=== PATIENT | male | born 1945 | race Caucasian/White ===

== ENCOUNTER → 2016-08-09 | Outpatient (CLI) | payer BC ==
[~2016-08-09] MED LIST: NORT50CA PO; RMCI; SIMV40TA2 PO
[2016-08-09 17:45] LABS: ALT/SGPT 32 U/L (12-78); BLOOD UREA NITROGEN 15 mg/dl (7-18); BUN/CREATININE RATIO 19.2 (10-20); CALCIUM 8.6 mg/dl (8.5-10.1); CARBON DIOXIDE 25 mmol/L (21-32); CHLORIDE 106 mmol/L (98-107); CHOLESTEROL 186 mg/dl (0-200); CREATININE 0.79 mg/dl (0.60-1.40); GLUCOSE 87 mg/dl (70-99); SODIUM 139 mmol/L (136-145); TRIGLYCERIDES 148 mg/dl (0-150); VERY LOW DENSITY LIPOPROT CALC 30 mg/dl
[2016-08-09 17:48] LABS: ALB/GLOB RATIO 0.9 (0.9-2); ALKALINE PHOSPHATASE 89 U/L (45-117); AST/SGOT 19 U/L (15-37); CHOLESTEROL/HDL RATIO 4.3; HDL CHOLESTEROL 43 mg/dl; LDL CHOLESTEROL CALCULATED 113 mg/dl
== END | disposition home or self-care (01) ==
LOC: C.LABBFT 12:14
PROVIDERS: ATTEND Internal Medicine
DX: E78.5 Hyperlipidemia, unspecified (principal)

== ENCOUNTER → 2016-12-19 | Outpatient (CLI) | payer BC ==
[2016-12-19 17:20] LABS: BASO % 0.7 %; BASO ABS # 0.04 K/uL (0-0.2); COMPLETE YES; EOS % 1.6 %; HEMATOCRIT 43.7 % (42-52); LYMPH % 30.3 %; LYMPH ABS # 1.84 K/uL (1.2-3.4); MEAN CELL VOLUME 96.9 fL (80-100); MEAN CORPUSCULAR HEMOGLOBIN 32.2 pg (25-34); MEAN CORPUSCULAR HGB CONC 33.2 g/dl (32-36); MEAN PLATELET VOLUME 10.7 fL (7.4-10.4); MONO % 12.4 %; PLATELET COUNT 257 K/uL (130-400); RED BLOOD COUNT 4.51 M/uL (4.7-6.1); WHITE BLOOD COUNT 6.07 K/uL (4.8-10.8)
[2016-12-19 17:36] LABS: ALT/SGPT 26 U/L (12-78); AST/SGOT 14 U/L (15-37); BLOOD UREA NITROGEN 14 mg/dl (7-18); BUN/CREATININE RATIO 19.6 (10-20); CALCIUM 8.7 mg/dl (8.5-10.1); CARBON DIOXIDE 27 mmol/L (21-32); CHLORIDE 106 mmol/L (98-107); CREATININE 0.72 mg/dl (0.60-1.40); GLUCOSE 89 mg/dl (70-99); SODIUM 138 mmol/L (136-145)
[2016-12-19 17:40] LABS: ALKALINE PHOSPHATASE 89 U/L (45-117); CHOLESTEROL 196 mg/dl (0-200); CHOLESTEROL/HDL RATIO 4.8; HDL CHOLESTEROL 41 mg/dl; LDL CHOLESTEROL CALCULATED 133 mg/dl; TRIGLYCERIDES 108 mg/dl (0-150); VERY LOW DENSITY LIPOPROT CALC 22 mg/dl
== END | disposition home or self-care (01) ==
LOC: C.LABBFT 11:46
PROVIDERS: ATTEND Internal Medicine
DX: D50.9 Iron deficiency anemia, unspecified (principal); E78.5 Hyperlipidemia, unspecified

== ENCOUNTER → 2017-02-05 | Outpatient (CLI) | payer BC ==
--- NOTE | 2017-02-05 11:21 | DIAGNOSTIC IMAGING REPORT ---
LUMBAR SPINE 2 OR 3 VIEWS, PELVIS 1 OR 2 VIEW ROUTINE HISTORY: 71 years-old Male RHEUMATOID ARTHRITIS bilateral lower extremity pain with history of rheumatoid arthritis. No reported trauma. COMPARISON: Lumbar spine radiograph 05/25/2013, pelvis radiographs 12/18/2013. TECHNIQUE: 3 views of the lumbar spine and 2 views of the pelvis FINDINGS: LUMBAR SPINE: Ribs at T12 are hypoplastic. Multilevel moderate and severe intervertebral disc space narrowing is seen throughout the spine, progressed from prior study dated 05/25/2013. Multilevel facet arthrosis and endplate spurring is also noted. There is straightening of the normal cervical lordosis. No acute fracture or subluxation identified. No definite erosive changes. Opacities projecting over the bilateral renal shadows measuring up to 3 mm may reflect fecal debris or renal calculi. PELVIS: Bones are mildly demineralized. Mild degenerative changes involve the bilateral hips without evidence of erosive arthropathy. There are mild degenerative changes of the SI joints without evidence of erosive arthropathy. IMPRESSION: 1. No acute fracture or dislocation. No evidence of erosive arthropathy. 2. Multilevel intervertebral disc space narrowing and facet arthropathy as above, progressed from prior study dated 05/25/2013. 3. Opacities projecting over the bilateral renal shadows measuring up to 3 mm may reflect fecal debris or renal calculi. The above report was generated using voice recognition software. It may contain grammatical, syntax or spelling errors. Electronically signed by: Cachorro Zavaleta M.D. 02/05/2017 11:19 AM Dictated Date/Time: 02/05/2017 11:14 AM
--- NOTE | 2017-02-05 11:22 | DIAGNOSTIC IMAGING REPORT ---
L HAND MIN 3 VIEWS ROUTINE CLINICAL HISTORY: RHEUMATOID ARTHRITIS COMPARISON STUDY: None. FINDINGS: No fracture or dislocation within the left hand. Bone mineralization is intact. Soft tissues are within normal limits. Mild osteoarthritis within the majority of the DIP and PIP joints. The PIP joint of the left fifth finger demonstrates advanced osteoarthritis with possible superimposed erosive arthritis. Otherwise, no areas of erosions identified. Small cystic focus at the distal ulna is likely due to chronic change rather than inflammatory arthropathy. Mild soft tissue swelling within the wrist. IMPRESSION: 1. 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 There is advanced arthritic change at the PIP joint of the left fifth digit which may demonstrate superimposed erosive arthritis. 2. No additional areas of erosive within the left hand. 3. Mild soft tissue swelling within the wrist. Electronically signed by: Valentin Perez M.D. 02/05/2017 11:20 AM Dictated Date/Time: 02/05/2017 11:17 AM
--- NOTE | 2017-02-05 11:24 | DIAGNOSTIC IMAGING REPORT ---
R FOOT MIN 3 VIEWS ROUTINE, L FOOT MIN 3 VIEWS ROUTINE CLINICAL HISTORY: RHEUMATOID ARTHRITIS COMPARISON STUDY: None. FINDINGS: No fracture or dislocation within the right or left foot. Soft tissues are unremarkable. The bones are osteopenic. Mild to moderate osteoarthritis within the DIP and PIP joints as well as the bilateral first MTP joints. Bony bunion at the first metatarsal heads. IMPRESSION: Chronic/degenerative changes as described above. No bony erosions identified. Electronically signed by: Valentin Perez M.D. 02/05/2017 11:22 AM Dictated Date/Time: 02/05/2017 11:20 AM
--- NOTE | 2017-02-05 11:36 | DIAGNOSTIC IMAGING REPORT ---
R HAND MIN 3 VIEWS ROUTINE CLINICAL HISTORY: 71 years-old Male presenting with RHEUMATOID ARTHRITIS. TECHNIQUE: Frontal, oblique, and lateral views of the right hand were obtained. COMPARISON: Correlation made to plain radiographs of the left hand performed the same day. FINDINGS: Radiocarpal, intercarpal, and carpometacarpal articulations preserved. Metacarpophalangeal joints preserved. Joint space loss and subchondral cystic change suggested at the proximal interphalangeal joint of the second finger. Subtle central erosions may be present. No significant soft tissue abnormality is evident. No acute fracture or malalignment. IMPRESSION: No evidence of erosive changes to suggest inflammatory arthritis. Degenerative changes at the proximal interphalangeal joint of the second finger consistent with osteoarthritis or erosive osteoarthritis. Electronically signed by: Aidan Lawson M.D. 02/05/2017 11:34 AM Dictated Date/Time: 02/05/2017 11:05 AM
== END | disposition home or self-care (01) ==
LOC: C.RAD 10:36
PROVIDERS: ATTEND Internal Medicine Rheumatology
DX: Z79.899 Other long term (current) drug therapy (principal); M25.50 Pain in unspecified joint; M05.79 Rheumatoid arthritis with rheumatoid factor of multiple sites without organ or systems involvement

== ENCOUNTER → 2017-03-22 | Outpatient (CLI) | payer BC | END | disposition home or self-care (01) | LOC: C.LABBFT 10:19 | PROVIDERS: ATTEND Urology | DX: N40.1 Benign prostatic hyperplasia with lower urinary tract symptoms (principal) ==

== ENCOUNTER → 2017-03-25 | Outpatient (CLI) | payer BC ==
--- NOTE | 2017-03-25 14:27 | DIAGNOSTIC IMAGING REPORT ---
KUB CLINICAL HISTORY: Nephrolithiasis. FINDINGS: 2 AP supine abdominal radiographs are compared to study dated 03/05/2016. There is a nonobstructed abdominal bowel gas pattern noting moderate to severe constipation. There are numerous tiny bilateral nonobstructing renal calculi, overall similar in appearance to the 03/05/2016 examination. The largest stone measures up to 4 mm. There is no radiographic evidence of ureteral stone. A large phlebolith is seen in the right hemipelvis. The skeletal structures are osteopenic. Mild to moderate lumbosacral spondylosis is observed. IMPRESSION: 1. There are numerous tiny nonobstructing bilateral renal calculi, similar in appearance to 03/05/2016. 2. Moderate to severe constipation. Electronically signed by: Matias Mondragon M.D. 03/25/2017 2:26 PM Dictated Date/Time: 03/25/2017 2:24 PM
== END | disposition home or self-care (01) ==
LOC: C.RAD 12:14
PROVIDERS: ATTEND Urology
DX: N20.0 Calculus of kidney (principal); K59.00 Constipation, unspecified

== ENCOUNTER → 2017-08-01 | Outpatient (CLI) | payer BC ==
[2017-08-01 11:08] LABS: HEMATOCRIT 41.2 % (42-52); HEMOGLOBIN 13.9 g/dL (14.0-18.0); MEAN CELL VOLUME 96.7 fL (80-100); MEAN CORPUSCULAR HEMOGLOBIN 32.6 pg (25-34); MEAN CORPUSCULAR HGB CONC 33.7 g/dl (32-36); MEAN PLATELET VOLUME 10.4 fL (7.4-10.4); PLATELET COUNT 222 K/uL (130-400); RED CELL DISTRIBUTION WIDTH CV 13.4 % (11.5-14.5); RED CELL DISTRIBUTION WIDTH SD 47.4 fL (36.4-46.3)
[2017-08-01 11:20] LABS: ALBUMIN 3.7 gm/dl (3.4-5.0); ALT/SGPT 24 U/L (12-78); BLOOD UREA NITROGEN 18 mg/dl (7-18); CALCIUM 8.7 mg/dl (8.5-10.1); CARBON DIOXIDE 28 mmol/L (21-32); CHOLESTEROL 157 mg/dl (0-200); CREATININE 0.73 mg/dl (0.60-1.40); GLUCOSE 89 mg/dl (70-99); POTASSIUM 3.8 mmol/L (3.5-5.1); SODIUM 139 mmol/L (136-145)
[2017-08-01 11:25] LABS: ALKALINE PHOSPHATASE 71 U/L (45-117); AST/SGOT 14 U/L (15-37); LDL CHOLESTEROL CALCULATED 99 mg/dl; TOTAL PROTEIN 7.3 gm/dl (6.4-8.2)
== END | disposition home or self-care (01) ==
LOC: C.LAB1850 08:56
PROVIDERS: ATTEND Internal Medicine
DX: E78.5 Hyperlipidemia, unspecified (principal)

== ENCOUNTER → 2017-08-20 | Outpatient (CLI) | payer BC | END | disposition home or self-care (01) | LOC: C.MAMM 13:32 | PROVIDERS: ATTEND Dentist Orthodontics and Dentofacial Orthopedics | DX: M19.90 Unspecified osteoarthritis, unspecified site (principal); M85.80 Other specified disorders of bone density and structure, unspecified site ==

== ENCOUNTER → 2017-12-02 | Day surgery (SDC) | payer BC ==
[2017-11-04 13:37] VITALS: Ht 182.9 cm; Wt 90.9 kg
[~2017-12-02] VITALS: Ht 182.9 cm; Wt 90.9 kg
[~2017-12-02] MED LIST changes: +500ML BSS 0.3ML EPI 1:1000PF IRRIG ONE; +ACETAMINOPHEN 325 MG TAB PO PRN; +ADAL40KI SC; +AMVISC PLUS 0.8ML SYRINGE INT OCU ONE; +ATOR-24 PO; +ATROPINE SULFATE 0.1 MG/ML 5ML SYR IV PRN; +BRIMONIDINE TART 0.2% OP SOLN PER DROP CHARGE ONE; +BSS FLUSH ONE; +DICL-201 PO; +DULO-24 PO; +ENDOCOAT 0.85ML SYRINGE INT OCU ONE; +EpHEDrine SULFATE INJ 50 MG/ML AMP IV PRN; +EpINEphrine INJ 1MG/ML AMP 1 MG/ML AMP ONE; +LACTATED RINGER'S 1000ML 500 ML IV SCH; +LIDOCAINE 4% OP SOLN DROP CHARGE ONE; +LIDOCAINE 4% OP SOLN DROP CHARGE OPL SCH; +LIDOCAINE HCL 1% MPF 2 ML VIAL ONE; +MIDAZOLAM HCL 1 MG/ML 2ML VIAL ONE; +MOXIFLOXACIN OPH SOLN PER DROP CHARGE ONE; -NORT50CA PO; +POVIDONE-IODINE OP SOLN 30 ML BTL ONE; +PROPARACAINE 0.5% OP SOLN PER DROP CHARGE OPL SCH; -RMCI; -SIMV40TA2 PO; +TOBRAMYCIN/DEXAMETHASONE OPH OINT PER APPLN CHARGE ONE
[2017-12-02] MEDS: PHENYLEPHRINE HCL 2.5% OP SOLN PER DROP CHARGE OPL SCH ×2 (09:38→09:43)
[2017-12-02] MEDS: TROPICAMIDE 1% OP SOLN PER DROP CHARGE OPL SCH ×2 (09:39→09:44)
[2017-12-02] MEDS: CYCLOPENTOLATE HCL 1% OP SOLN PER DROP CHARGE OPL SCH ×2 (09:40→09:45)
[2017-12-02] MEDS: KETOROLAC 0.5% OP SOLN PER DROP CHARGE OPL SCH ×2 (09:41→09:46)
[2017-12-02] MEDS: MOXIFLOXACIN OPH SOLN PER DROP CHARGE OPL SCH ×2 (09:42→09:53)
--- NOTE | 2017-12-02 09:42 | History & Physical Bridge - SC ---
H&P Re-Evaluation Bridge Note: I have examined the patient, reviewed the History & Physical and in the interval since the performance of the History & Physical I have noted the following changes of clinical significance: No changes noted
--- NOTE | 2017-12-02 10:39 | [facility] Operative Report ---
Operative Report Operative Date Dec 02, 2017. Pre-Operative Diagnosis Left Eye Cataract Post-Operative Diagnosis same Procedure(s) Performed Left Cataract Phacoemulsification With Intraocular Lens Implant Surgeon Dr. Ban Zhou Social Worker Psychiatric Surgeon(s) 0 Estimated Blood Loss 0 Findings cataract left eye Specimens None Drains None Anesthesia Type MAC Complication(s) none Disposition no Recovery Room / PACU Indications decreased vision left eye Description of Procedure After informed consent was obtained in the holding area the patient was wheeled back to the operating room where cardiac monitoring leads and oxygen by nasal cannula was administered by Anesthesia. Gentle IV sedation was given, and the patient's left eye was prepped and draped in usual sterile fashion. A wire lid speculum was placed into the left eye and the operating microscope was swung into position. Using 0.12 forceps and a Supersharp blade a paracentesis port was made 2 o'clock hours away from the 3 o'clock position of the patient's left eye. 1% non-preserved Lidocaine was then injected into the anterior chamber for anesthesia. A 2.0 mm keratotome blade was then used to make a shelved clear corneal incision at the 3 o'clock position of the left eye. Amvisc was injected into the anterior chamber and a cystotome and Utrata forceps were used to perform a curvilinear capsulorrhexis. BSS on a hydrodissection cannula was used to hydrodissect the lens nucleus away from the capsular bag. The phacoemulsification handpiece was then used in a stop and chop fashion to remove the lens nucleus. The irrigation and aspiration handpiece was then used to remove the residual cortical material. Amvisc was injected into the capsular bag and anterior chamber and a B[employer]ch [employer] Lomb MX60E 20.5 Diopter intraocular lens was injected into the capsular bag. Irrigation and aspiration handpiece was used to remove the residual viscoelastic material. The wounds were hydrated and noted to be watertight. The wire lid speculum was removed from the eye. Vigamox, Brimonidine, and TobraDex ointment were placed on the eye and it was shielded. It should be noted that EndoCoat was used extensively during the case to protect the cornea endothelium. DISPOSITION: The patient tolerated the procedure well and was wheeled to the post anesthesia care unit in stable condition. I attest to the content of the Intraoperative Record and any orders documented therein. Any exceptions are noted below. I attest to the content of the Intraoperative Record and any orders documented therein. Any exceptions are noted below.
--- NOTE | 2017-12-02 10:40 | Discharge Instructions-SurgCtr ---
Discharge Instructions Date of Service Dec 02, 2017. Visit Reason for Visit: Cataract Left Eye Discharge Discharge Diagnosis / Problem: cataract left eye Discharge Goals Goal(s): Improve function Activity Recommendations Activity Limitations: per Instructions/Follow-up section Lifting Limitations: no more than 5 pounds Anesthesia . Post Anesthesia Instructions: If you have had General Anesthesia or IV Sedation: * Do not drive today. * Resume driving when surgeon permits. * Do not make important decisions or sign legal documents today. * Call surgeon for: 1. Temperature elevations greater than 101 degrees F. 2. Uncontrollable pain. 3. Excessive bleeding. 4. Persistent nausea and vomiting. 5. Medication intolerance (nausea, vomiting or rash). * For nausea and vomiting use only clear liquids such as: tea, soda, bouillon until nausea subsides, then gradually increase diet as tolerated. * If you have any concerns or questions, call your surgeon's office. If physician is unavailable and it is an emergency, call 911 or go to the nearest emergency room. . Instructions / Follow-Up Instructions / Follow-Up ACTIVITY RECOMMENDATIONS: * Light activities * You may walk outside, read, watch television. * Mild irritation and blurred vision are common for the first few days, redness around the white part of the eye is common. MEDICATIONS: Resume previous medications unless instructed otherwise by your surgeon. Eye drops (today and tomorrow): Polytrim - one drop in operative eye every 2 hours while awake Prednisolone 1% - one drop in operative eye every 2 hours while awake Prolensa - one drop operative eye 1 times daily SPECIAL CARE INSTRUCTIONS: * If any problems or concerns, please call Dr. Zhou's office at . * Keep plastic shield taped over eye to sleep at night. * Keep plastic shield taped over eye except to administer eye drops. * Keep plastic shield on until office visit the following day. FOLLOW UP VISIT: Follow-up with Dr. Zhou in the [facility] office as scheduled. If not already scheduled, please call the office at . Diet Recommendations Home Diet: resume previous diet Procedures Procedures Performed: Left Cataract Phacoemulsification With Intraocular Lens Implant Pending Studies Studies pending at discharge: no Medical Emergencies . Who to Call and When: Medical Emergencies: If at any time you feel your situation is an emergency, please call 911 immediately. . Non-Emergent Contact Non-Emergency issues call your: Security Professional . . "Provider Documentation" section prepared by Bronson Zhou. .
[2017-12-02 10:42] VITALS: TEMP 36.3
[2017-12-02 11:10] VITALS: BP 142/86; PULSE 59; O2SAT 98
--- NOTE | 2017-12-02 11:20 | Anesthesia Progress Nt - [facility] ---
Anesthesia Post Op Note Date & Time Dec 02, 2017 at 11:20 Vital Signs Pain Intensity: 0 Vital Signs Past 12 Hours Date Time Temp Pulse Resp B/P (MAP) Pulse Ox O2 Delivery O2 Flow Rate FiO2 12/02/17 11:10 59 18 142/86 (104) 98 Room Air 12/02/17 10:42 36.3 62 16 155/85 (108) 99 Room Air 12/02/17 09:29 36.9 60 18 167/103 (124) 99 Room Air 153/93 (113) Notes Mental Status: alert / awake / arousable, participated in evaluation Pt Amnestic to Procedure: Yes Nausea / Vomiting: adequately controlled Pain: adequately controlled Airway Patency, RR, SpO2: stable & adequate BP & HR: stable & adequate Hydration State: stable & adequate Anesthetic Complications: no major complications apparent
== END | disposition home or self-care (01) ==
LOC: X.SURG 09:11
PROVIDERS: ATTEND Ophthalmology
DX: H25.12 Age-related nuclear cataract, left eye (principal); E78.00 Pure hypercholesterolemia, unspecified; E78.5 Hyperlipidemia, unspecified; M06.9 Rheumatoid arthritis, unspecified; N18.9 Chronic kidney disease, unspecified; Z98.41 Cataract extraction status, right eye

== ENCOUNTER 2021-12-05 07:49 | Inpatient (IN) ==
[2021-12-05] MEDS ORDERED: ONDANSETRON INJ 2 MG/ML 2 ML VIAL IV STA (08:12)
[2021-12-05] MEDS ORDERED: HYDROmorphone INJ 1 MG/ML SYRINGE IV STA ×2 (08:12→14:34)
--- NOTE | 2021-12-05 08:12 | Emergency Department Note ---
Impression & Plan Calculus of right ureter, Hydronephrosis of right kidney, Intractable pain ED Provider Note Name: TATYANA PERRY Age: 76 Sex: M Arrives Via: Walk-In Informant: Patient, ED Provider: Román Baird MD Chief Complaint: Flank pain Impression: As per impressions above Medical Decision Making: Pleasant 76-year-old gentleman with a long history of renal colic stones and previous urology evaluation. He had a lithotripsy of an 8 mm stone in the right kidney done about 4 days ago. Sudden onset pain last night nausea vomiting very uncomfortable. Given multiple rounds of narcotics to get comfortable here in the ER. No recent CT imaging and thus I felt it was reasonable to go ahead with that given the amount of pain he is having post procedurally. He has 2 4 mm stones in the mid right ureter with resulting hydro-. Kidney functions good he does not have evidence of infection. He does difficulty but under control without IV narcotics. I discussed this with the hospitalist who will bring him in for further management. Patient is on board with this plan. Prior Medical Record and Triage/Nursing Notes reviewed by Me Additional history obtained from chart Differentials:Renal colic, UTI, appendicitis, diverticulitis, mesenteric ischemia, aortic pathology, infections, inflammatory bowel disease, PUD, biliary pathology, as well as other pathologies. Vital Signs: reviewed and remarkable for no significant abnormalities Interventions: Dilaudid 1 mg IV x2, Dilaudid 0.5 mg IV x2, Zofran 4 mg IV, normal saline bolus Labs:Reviewed and remarkable for no significant abnormalities Imaging:CT of the abdomen pelvis as per radiologist obstructing right ureteral stones with hydro- Consults:Dr Anu BALDERRAMA Hospitalist Plan: Disposition:Hospitalization. Condition: Good History of Present Illness:76-year-old gentleman arrives for evaluation of right flank pain. Patient with sudden onset right flank rating to his right groin starting earlier this morning. He took a hydrocodone without improvement. Associated with nausea. Denies any falls, trauma, injury. He denies any fevers, chills, vomiting, abdominal pain otherwise, weakness, urinary burning/frequency or other symptoms. He is not currently on any antibiotics. Nothing seems to make the pain better or worse. He has been straining his urine though notes no large stones just some small gravel. Symptoms have been going on for about 6 hours. Patient has been dealing with a large right kidney stone though it had not really been causing much pain and was roughly 8 to 9 mm in size. He had a lithotripsy done 4 days ago to break this up and had been doing well the last f ew days. Then suddenly this morning the pain had started. Patient has a long history of kidney stones though no recent colic issues and does not recall any recent CT scanning of his abdomen or pelvis. ROS: See above HPI for pertinent positives & negatives. A total of 10 systems reviewed and were otherwise negative. Past Medical History:See Below Past Surgical History:See Below Family History:See Below Social History:See Below Home Medications:See Below Allergies:sulfur Vitals:Blood Pressure: 162/84, Pulse 74, RR 20, T 37.6C, O2 96% on RA Physical Exam: GENERAL: Patient is very uncomfortable appearing and in moderate distress. EYES: No scleral icterus, unremarkable pupils. ENT: Mucous membranes moist, no nasal congestion. NECK: No masses appreciated, nomeningismus, trachea is midline. RESPIRATORY: No dyspnea. Clear to auscultation and equal bilaterally. No wheeze, no rhonchi. CARDIOVASCULAR: Regular rate and rhythm.No murmurs, rubs, gallops appreciated. GASTROINTESTINAL: Abdomen soft, non-tender, no peritonitis.Bowel sounds posi tive.No masses appreciated. BACK: No midline tenderness, no CVA tenderness EXTREMITIES: Normal motion all extremities, no cyanosis, no edema. NEUROLOGIC: Alert and oriented, no acute motor or sensory deficits, no focal weakness, cranial nerves grossly intact. SKIN: No rash, no jaundice, no diaphoresis. PSYCH: Appropriate GCS: 15 ED Course: Times/Reassessments: Patient improving pain though still somewhat uncomfortable and agreeable to hospitalization for further management. 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 Femoral nerve was attempted to be repaired but not successful. Hamstrings were repositioned to allow for functional use of leg. Urinary frequency Surgical History History of bilateral cataract extraction History of colonoscopy History of hemorrhoidectomy History of orthopedic surgery Patella repair History of right inguinal hernia repair Hx of appendectomy Hx of lithotripsy S/P T&A (status post tonsillectomy and adenoidectomy) Family History Mother Osteoarthritis CHF (congestive heart failure) Brother Hypertension Atrial fibrillation Kidney stones Father Tobacco use Valvular heart disease Coronary heart disease Denies family history of Colon cancer Ovarian cancer Prostate cancer Clotting disorder Myocardial infarction Breast cancer Colorectal cancer Social History (Updated 12/05/21 @ 11:13 by Quincy Brennan) Smoking Status: Never smoker Second Hand Exposure: No; Hx Alcohol Use: No Hx Substance Use: No Preferred Language: Kazakh Communication Ability: Effective Visual Impairment: Limited Hearing Ability: Normal Street Inspector Required: No Beliefs That Will Affect Care: None marital status: Current Living Situation: Spouse Current Living Situation Comment: lives near [place] current occupational status: retired 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[employer], [employer], etc How many Children do You have: 4 How many Children do You have Comment: 3 step-children, 1 biological child (has been 2x) Feels Safe at Home: Yes Dental Care, Regularly: Yes Physical Activity Frequency: Does not Exercise Seatbelt Use: sometimes Assistive Devices: Glasses Allergies Allergies Allergy/AdvReac Type Severity Reaction Status Date / Time sulfur [From Sulfur-8] Allergy Intermediate Rash Verified 12/01/21 06:20 Home Meds Home Medications Medication Instructions Recorded Confirmed adalimumab 40 mg/0.8 mL 40 mg subcut Q14D 04/25/18 12/01/21 subcutaneous pen kit (Humira Pen) diphenhydramine 25 1 tab PO Q6H PRN Sleep 12/29/18 12/01/21 mg-acetaminophen 500 mg tablet (Tylenol PM Extra Strength) ibuprofen 800 mg tablet 800 mg PO TID PRN Pain 10/04/21 12/01/21 irbesartan 75 mg tablet (Avapro) 75 mg PO QAM 11/22/21 12/01/21 omeprazole 40 mg capsule,delayed 40 mg PO QAM 11/22/21 12/01/21 release tadalafil 5 mg tablet 5 mg PO QDL 11/22/21 12/01/21 tamsulosin 0.4 mg capsule (Flomax) 0.4 mg PO QDL 11/22/21 12/01/21 Previous Rx's Medication Instructions Recorded atorvastatin 40 mg tablet (Lipitor) 40 mg PO QPM #90 tabs 10/24/21 hydrocodone 5 mg-acetaminophen 325 1 tab PO Q6H PRN pain #15 tabs 12/01/21 mg tablet Results & Data (ED) Vital Signs Vital Signs - 24 hr 12/05/21 07:55 12/05/21 08:28 12/05/21 08:32 Temperature Temperature Source Pulse Rate 72 Pulse Rate [Right Finger] 72 74 Pulse Rhythm [Right Finger] Respiratory Rate 20 20 20 Respiratory Effort / Characteristics Non-Labored Non-Labored Respiratory Depth Normal Normal Blood Pressure 190/96 H Blood Pressure [Right Arm] 159/86 H 162/84 H Blood Pressure Mean 127 Blood Pressure Mean [Right Arm] 110 110 Pulse Oximetry 98 95 96 Oxygen Delivery Method Room Air Room Air Room Air Sepsis Recent Fever Within 48 Hours No Sepsis New/Unexplained Change in Mental Status N/A Sepsis Action Taken by Nursing No Action Required 12/05/21 09:33 12/05/21 10:11 12/05/21 11:06 Temperature Temperature Source Pulse Rate Pulse Rate [Right Finger] 78 72 73 Pulse Rhythm [Right Finger] Respiratory Rate 20 18 18 Respiratory Effort / Characteristics Non-Labored Non-Labored Respiratory Depth Normal Normal Blood Pressure Blood Pressure [Right Arm] 157/83 H 167/80 H 160/91 H Blood Pressure Mean Blood Pressure Mean [Right Arm] 107 109 114 Pulse Oximetry 97 95 100 Oxygen Delivery Method Room Air Room Air Room Air Sepsis Recent Fever Within 48 Hours Sepsis New/Unexplained Change in Mental Status Sepsis Action Taken by Nursing 12/05/21 11:51 12/05/21 12:30 12/05/21 13:19 Temperature Temperature Source Pulse Rate Pulse Rate [Right Finger] 65 68 68 Pulse Rhythm [Right Finger] Regular Respiratory Rate 18 18 18 Respiratory Effort / Characteristics Non-Labored Respiratory Depth Normal Blood Pressure Blood Pressure [Right Arm] 154/93 H 165/87 H 173/90 H Blood Pressure Mean Blood Pressure Mean [Right Arm] 113 113 117 Pulse Oximetry 95 98 97 Oxygen Delivery Method Room Air Room Air Room Air Sepsis Recent Fever Within 48 Hours Sepsis New/Unexplained Change in Mental Status Sepsis Action Taken by Nursing 12/05/21 14:25 12/05/21 14:31 Temperature 37.6 C H Temperature Source Oral Pulse Rate Pulse Rate [Right Finger] 70 Pulse Rhythm [Right Finger] Respiratory Rate 18 Respiratory Effort / Characteristics Non-Labored Respiratory Depth Normal Blood Pressure Blood Pressure [Right Arm] 170/85 H Blood Pressure Mean Blood Pressure Mean [Right Arm] 113 Pulse Oximetry 100 Oxygen Delivery Method Room Air Sepsis Recent Fever Within 48 Hours Sepsis New/Unexplained Change in Mental Status Sepsis Action Taken by Nursing Laboratory Data Result diagrams: 12/05/21 08:07 12/05/21 08:07 Lab Results 12/05/21 12/05/21 12/05/21 Range/Units 08:07 08:07 11:04 WBC 9.66 (4.8-10.8) K/ul RBC 4.40 L (4.63-6.08) M/uL Hgb 13.9 L (14.0-18.0) g/dl Hct 41.2 (40.1-51.0) % MCV 93.6 (80.0-100.0) fL MCH 31.6 (25.0-34.0) pg MCHC 33.7 (32.0-36.0) g/dL RDW Std Deviation 45.1 (36.4-46.3) fL RDW Coeff of Matthew 13.2 (11.5-14.5) % Plt Count 215 (130-400) K/uL MPV 10.0 (9.4-12.4) fL Immature Gran % (Auto) 0.2 % Neut % (Auto) 78.1 % Lymph % (Auto) 9.5 % [place] % (Auto) 10.7 % Eos % (Auto) 0.8 % Baso % (Auto) 0.7 % Neut # (Auto) 7.54 H (1.4-6.5) K/uL Lymph # (Auto) 0.92 L (1.2-3.4) K/uL [place] # (Auto) 1.03 H (0.24-0.82) K/uL Eos # (Auto) 0.08 (0-0.50) K/uL Baso # (Auto) 0.07 (0-0.2) K/uL Immature Gran # (Auto) 0.02 (0.00-0.02) K/uL Sodium 136 (136-145) mmol/L Potassium 4.1 (3.5-5.1) mmol/L Chloride 104 (98-107) mmol/L Carbon Dioxide 27 (21-32) mmol/L Anion Gap 5 (3-11) BUN 18 (6-23) mg/dl Creatinine 1.00 (0.6-1.4) mg/dl Est Cr Clr Drug Dosing 75.9 ml/min Est GFR ( Amer) 85.0 ml/min Est GFR (Non-Af Amer) 73.3 ml/min BUN/Creatinine Ratio 18.0 (10-20) Glucose 124 H (70-99(Fasting)) mg/dl Calcium 8.9 (8.5-10.1) mg/dl Total Bilirubin 1.0 (0.2-1.0) mg/dl Direct Bilirubin 0.1 (0-0.2) mg/dl AST 13 (13-39) U/L ALT 11 (7-52) U/L Alkaline Phosphatase 87 (34-104) U/L Total Protein 7.4 (6.0-8.3) gm/dl Albumin 4.1 (3.4-5.0) gm/dl Lipase 13 (11-82) U/L Urine Color Yellow Urine Appearance Clear (Clear) Urine pH 6.0 (4.5-7.5) Ur Specific [place] 1.021 (1.000-1.030) Urine Protein Negative (Negative) Urine Glucose (UA) Negative (Negative) Urine Ketones Negative (Negative) Urine Blood 1+ H (Negative) Urine Nitrite Negative (Negative) Urine Bilirubin Negative (Negative) Urine Urobilinogen Negative (Negative) Ur Leukocyte Esterase Negative (Negative) Urine WBC (Auto) 1-5 (0-5) /hpf Urine RBC (Auto) 5-10 H (0-4) /hpf U Hyaline Cast (Auto) 1-5 (0-5) /lpf U Epithel Cells (Auto) 0-5 (0-5) /lpf Urine Bacteria (Auto) Negative (Negative) SARS-CoV-2, RNA, NAAT (NEGATIVE) 12/05/21 Range/Units 11:05 WBC (4.8-10.8) K/ul RBC (4.63-6.08) M/uL Hgb (14.0-18.0) g/dl Hct (40.1-51.0) % MCV (80.0-100.0) fL MCH (25.0-34.0) pg MCHC (32.0-36.0) g/dL RDW Std Deviation (36.4-46.3) fL RDW Coeff of Matthew (11.5-14.5) % Plt Count (130-400) K/uL MPV (9.4-12.4) fL Immature Gran % (Auto) % Neut % (Auto) % Lymph % (Auto) % [place] % (Auto) % Eos % (Auto) % Baso % (Auto) % Neut # (Auto) (1.4-6.5) K/uL Lymph # (Auto) (1.2-3.4) K/uL [place] # (Auto) (0.24-0.82) K/uL Eos # (Auto) (0-0.50) K/uL Baso # (Auto) (0-0.2) K/uL Immature Gran # (Auto) (0.00-0.02) K/uL Sodium (136-145) mmol/L Potassium (3.5-5.1) mmol/L Chloride (98-107) mmol/L Carbon Dioxide (21-32) mmol/L Anion Gap (3-11) BUN (6-23) mg/dl Creatinine (0.6-1.4) mg/dl Est Cr Clr Drug Dosing ml/min Est GFR ( Amer) ml/min Est GFR (Non-Af Amer) ml/min BUN/Creatinine Ratio (10-20) Glucose (70-99(Fasting)) mg/dl Calcium (8.5-10.1) mg/dl Total Bilirubin (0.2-1.0) mg/dl Direct Bilirubin (0-0.2) mg/dl AST (13-39) U/L ALT (7-52) U/L Alkaline Phosphatase (34-104) U/L Total Protein (6.0-8.3) gm/dl Albumin (3.4-5.0) gm/dl Lipase (11-82) U/L Urine Color Urine Appearance (Clear) Urine pH (4.5-7.5) Ur Specific [place] (1.000-1.030) Urine Protein (Negative) Urine Glucose (UA) (Negative) Urine Ketones (Negative) Urine Blood (Negative) Urine Nitrite (Negative) Urine Bilirubin (Negative) Urine Urobilinogen (Negative) Ur Leukocyte Esterase (Negative) Urine WBC (Auto) (0-5) /hpf Urine RBC (Auto) (0-4) /hpf U Hyaline Cast (Auto) (0-5) /lpf U Epithel Cells (Auto) (0-5) /lpf Urine Bacteria (Auto) (Negative) SARS-CoV-2, RNA, NAAT NEGATIVE (NEGATIVE) Administered Medications Discontinued Medications Hydromorphone HCl (Hydromorphone Inj 1 Mg/Ml Syringe) 1 mg IV NOW STA Stop: 12/05/21 08:13 Last Admin: 12/05/21 08:20 Dose: 1 mg Documented By: NIKKI Hydromorphone HCl (Hydromorphone Inj 0.5 Mg/0.5 Ml Syr) 0.5 mg IV NOW STA Stop: 12/05/21 09:02 Last Admin: 12/05/21 09:35 Dose: 0.5 mg Documented By: NIKKI Hydromorphone HCl (Hydromorphone Inj 0.5 Mg/0.5 Ml Syr) 0.5 mg IV NOW STA Stop: 12/05/21 10:05 Last Admin: 12/05/21 10:13 Dose: 0.5 mg Documented By: NIKKI Sodium Chloride (Nss 1000ml) 1,000 mls @ 999 mls/hr IV .Q1H1M ONE Stop: 12/05/21 09:18 Last Infusion: 12/05/21 09:38 Dose: 0 mls/hr Documented By: Admin: 12/05/21 08:20 Dose: 999 mls/hr Documented By: NIKKI Ondansetron HCl (Ondansetron Inj 2 Mg/Ml 2 Ml Vial) 4 mg IV NOW STA Stop: 12/05/21 08:13 Last Admin: 12/05/21 08:19 Dose: 4 mg Documented By: NIKKI Imaging Data Radiologist's Impression: Abdomen/Pelvis CT 12/05/21 08:[address] WITHOUT CONTRAST CT DOSE: 605.18 mGy.cm HISTORY: right flank pain, recent lithotripsy TECHNIQUE: Multiaxial CT images of the abdomen and pelvis were performed without contrast. A dose lowering technique was utilized adhering to the principles of ALARA. COMPARISON STUDY: None. FINDINGS: There are 2 adjacent stones within the mid right ureter measuring 4 mm and 2 mm best seen on images 260 and 254, respectively. This results in mild right hydronephrosis and right perinephric edema. Multiple additional bilateral renal calculi measuring up to 5 mm within the lower pole the right kidney. No left-sided hydronephrosis. However, there is an 8 x 5 mm nonobstructing stone within the proximal left ureter on image 205. Mild bladder wall thickening. This is likely due to chronic outlet obstruction from the enlarged prostate gland. Mild dependent changes seen at the lung bases. No pneumoperitoneum. No pneumatosis. Moderate to severe degenerative disease within the lumbar spine. The unenhanced liver, gallbladder, pancreas, spleen and adrenal glands are unremarkable. No retroperitoneal lymphadenopathy. Normal caliber abdominal aorta. No pelvic lymphadenopathy. Suboptimal evaluation for bowel pathology due to the lack of intravenous and oral contrast. However, there is no definite bowel wall thickening or obstruction. The appendix is surgically absent. Colonic diverticulosis. No evidence for acute diverticulitis. IMPRESSION: 1. There are 2 adjacent stones within the mid right ureter measuring up to 4 mm resulting in mild right hydronephrosis. 2. There is an 8 x 5 mm nonobstructing stone within the proximal left ureter. 3. Bilateral nephrolithiasis. 4. Additional findings as described above. ACT 112: Negative or not required by law. Electronically signed by: Valentin Perez M.D. 12/05/2021 9:01 AM Discharge Plan Visit Data Chief Complaint: Kidney Stone Stated Complaint: KIDNEY STONE ED Provider: Román Baird Discharge Problem: Calculus of right ureter, Hydronephrosis of right kidney, Intractable pain Forms Stand Alone Forms: My [facility] Prescriptions Prescriptions: No Action adalimumab [Humira Pen] 40 mg/0.8 mL pen injector kit 40 mg SQ Q14D atorvastatin [Lipitor] 40 mg tablet 40 mg PO QPM Qty: 90 3RF ibuprofen 800 mg tablet 800 mg PO TID PRN (Reason: Pain) diphenhydramine-acetaminophen [Tylenol PM Extra Strength] 25-500 mg tablet 1 tab PO Q6H PRN (Reason: Sleep) omeprazole 40 mg capsule,delayed release(DR/EC) 40 mg PO QAM tamsulosin [Flomax] 0.4 mg capsule 0.4 mg PO QDL irbesartan [Avapro] 75 mg tablet 75 mg PO QAM Rx Instructions: just adding refills tadalafil 5 mg tablet 5 mg PO QDL Rx Instructions: take 1 hour prior to need hydrocodone-acetaminophen 5-325 mg tablet 1 tab PO Q6H PRN (Reason: pain) Qty: 15 0RF Referrals Referrals: Piotr Peter DO [Primary Care Provider] -
[2021-12-05] MEDS ORDERED: SODIUM CHLORIDE 0.9% 1000ML 1,000 ML IV ONE (08:18)
[2021-12-05 08:20] LABS: Basophils # (auto) 0.07 K/uL (0-0.2); Basophils % (auto) 0.7 %; Eosinophils # (auto) 0.08 K/uL (0-0.50); Eosinophils % (auto) 0.8 %; Hematocrit (blood only) 41.2 % (40.1-51.0); Hemoglobin 13.9 g/dl (14.0-18.0); Immature Granulocytes # (auto) 0.02 K/uL (0.00-0.02); Immature Granulocytes % (auto) 0.2 %; Lymphocytes # (auto) 0.92 K/uL (1.2-3.4); Lymphocytes % (auto) 9.5 %; Mean Corpuscular Hemoglobin 31.6 pg (25.0-34.0); Mean Corpuscular Hgb Conc 33.7 g/dL (32.0-36.0); Mean Corpuscular Volume 93.6 fL (80.0-100.0); Monocytes # (auto) 1.03 K/uL (0.24-0.82); Monocytes % (auto) 10.7 %; Neutrophils # (auto) 7.54 K/uL (1.4-6.5); Neutrophils % (auto) 78.1 %; Platelet Count 215 K/uL (130-400); RDW Coefficient of Variation 13.2 % (11.5-14.5); RDW Standard Deviation 45.1 fL (36.4-46.3); White Blood Count 9.66 K/ul (4.8-10.8)
[2021-12-05 08:46] LABS: Albumin Level 4.1 gm/dl (3.4-5.0); Bilirubin Direct 0.1 mg/dl (0-0.2); Calcium 8.9 mg/dl (8.5-10.1); Creatinine Clr Calc Pharmacy 75.9 ml/min; Est GFR (Non-African American) 73.3 ml/min; Potassium 4.1 mmol/L (3.5-5.1); Total Protein 7.4 gm/dl (6.0-8.3)
[2021-12-05] MEDS ORDERED: HYDROmorphone INJ 0.5 MG/0.5 ML SYR IV STA ×2 (09:01→10:04)
--- NOTE | 2021-12-05 09:43 | CT Scan Report ---
ABDOMEN AND PELVIS CT WITHOUT CONTRAST CT DOSE: 605.18 mGy.cm HISTORY: right flank pain, recent lithotripsy TECHNIQUE: Multiaxial CT images of the abdomen and pelvis were performed without contrast. A dose lo wering technique was utilized adhering to the principles of ALARA. COMPARISON STUDY: None. FINDINGS: There are 2 adjacent stones within the mid right ureter measuring 4 mm and 2 mm best seen o n images 260 and 254, respectively. This results in mild right hydronephrosis and right perinephric e sabine. Multiple additional bilateral renal calculi measuring up to 5 mm within the lower pole the righ t kidney. No left-sided hydronephrosis. However, there is an 8 x 5 mm nonobstructing stone within the proximal left ureter on image 205. Mild bladder wall thickening. This is likely due to chronic outle t obstruction from the enlarged prostate gland. Mild dependent changes seen at the lung bases. No pne umoperitoneum. No pneumatosis. Moderate to severe degenerative disease within the lumbar spine. The u nenhanced liver, gallbladder, pancreas, spleen and adrenal glands are unremarkable. No retroperitonea l lymphadenopathy. Normal caliber abdominal aorta. No pelvic lymphadenopathy. Suboptimal evaluation f or bowel pathology due to the lack of intravenous and oral contrast. However, there is no definite crissy wel wall thickening or obstruction. The appendix is surgically absent. Colonic diverticulosis. No akua dence for acute diverticulitis. IMPRESSION: 1. There are 2 adjacent stones within the mid right ureter measuring up to 4 mm resulting in mild rig ht hydronephrosis. 2. There is an 8 x 5 mm nonobstructing stone within the proximal left ureter. 3. Bilateral nephrolithiasis. 4. Additional findings as described above. ACT 112: Negative or not required by law. Electronically signed by: Valentin Perez M.D. 12/05/2021 9:01 AM
--- NOTE | 2021-12-05 10:27 | History & Physical Report ---
Date of Service December 05, 2021 Assessment & Plan (1) Urinary tract obstruction by kidney stone: Plan: Recent h/o 8mm renal stone on the right side, s/p Extracorporeal Shock Wave Lithotripsy by Dr Ray on 12/01/21 without incident. Unfortunately it appears that the stone fragments - now 4mm and 2mm based on today's CT - have migrated into the right ureter causing mild hydronephrosis. He has had severe pain since early this AM due to such. s/p multiple doses of IV dilaudid in the ER with improved pain control. Plan - * keep NPO until [facility] has evaluated; formal consult placed * continue flomax * copious IV fluids with NS at 150cc/hr * dilaudid IV prn pain * zofran IV prn nausea/emesis * strain all urine * send u/a and urine cx; low threshold for antibiotics if any suspicion for infection (2) BPH (benign prostatic hyperplasia): Plan: continue flomax no LUTS at this time (3) Rheumatoid arthritis: Plan: controlled at this time follows with rheumatology in [place] is on immune-based therapy chronically but not steroids or methotrexate (4) GERD (gastroesophageal reflux disease): Plan: change omeprazole to protonix daily (5) Nephrolithiasis: Plan: bilateral stones calcium-based by history candidate for HCTZ use given his concomitant HTN? defer to urology that decision (6) Hyperlipidemia: Plan: cont statin therapy LFTs noted to be wnl (7) Hypertension: Plan: hold ARB given his urinary obstruction from the right-sided stones continue flomax use low-dose amlodipine in tianna of his ARB adjust meds as needed (8) DVT prophylaxis: Plan: low risk ambulation and SCDs for now chemical means contraindicated in the setting of his kidney stone and potential for needing intervention Plan fully updated at bedside repeat CBC, BMP in am repeat KUB in am if conservative measures are employed today History of Present Illness Chief Complaint: right flank pain Primary Care Provider: Piotr Peter, DO 76yo male with h/o recurrent calcium-based kidney stones, HTN, and rheumatoid arthritis presents with the acute onset of right flank pain beginning this am about 0300. The pain woke him from sleep and was very sharp/severe. He could not get comfortable all morning. He tried taking norco that he already had at home and this did not provide any relief. He drank fluids and took a walk and the pain persisted. Some of the pain began to radiate around to the front of the right side of the abdomen and into the right groin/genitalia region. Some nausea but no vomiting. Denies any fevers/chills. Of note - the patient just had lithotripsy on 12/01/21 for a right-sided 8mm kidney stone with Dr Ray, [facility]. Following the procedure he had 1 episode of gross hematuria which promptly resolved. Since the lithotripsy he has passed dust from the kidney stone intermittently in his urine. No hematuria since. No dysuria. On CT abd/pelvis in the ER this am there are 2 stone fragments in the right ureter - 4mm, and 2mm. There is also a left-sided 8mm stone in the proximal left ureter without any hydronephrosis. By the time of my assessment he was much more comfortable after receiving multiple doses of IV dilaudid and a liter of NS. Allergies Allergy/AdvReac Type Severity Reaction Status Date / Time sulfur [From Sulfur-8] Allergy Intermediate Rash Verified 12/01/21 06:20 Home Medications Medication Instructions Recorded Confirmed Type adalimumab 40 mg/0.8 mL 40 mg subcut Q14D 04/25/18 12/01/21 History subcutaneous pen kit (Humira Pen) diphenhydramine 25 1 tab PO Q6H PRN Sleep 12/29/18 12/01/21 History mg-acetaminophen 500 mg tablet (Tylenol PM Extra Strength) ibuprofen 800 mg tablet 800 mg PO TID PRN Pain 10/04/21 12/01/21 History atorvastatin 40 mg tablet (Lipitor) 40 mg PO QPM #90 tabs 10/24/21 12/01/21 Rx irbesartan 75 mg tablet (Avapro) 75 mg PO QAM 11/22/21 12/01/21 History omeprazole 40 mg capsule,delayed 40 mg PO QAM 11/22/21 12/01/21 History release tadalafil 5 mg tablet 5 mg PO QDL 11/22/21 12/01/21 History tamsulosin 0.4 mg capsule (Flomax) 0.4 mg PO QDL 11/22/21 12/01/21 History hydrocodone 5 mg-acetaminophen 325 1 tab PO Q6H PRN pain #15 tabs 12/01/21 Rx mg tablet Past Med/Surg History Medical History (Updated 12/05/21 @ 11:17 by Quincy Brennan) Bilateral sacroiliitis Chronic renal insufficiency GERD (gastroesophageal reflux disease) Hyperlipidemia Nephrolithiasis numerous - calcium based Osteoarthritis Rheumatoid arthritis Schwannoma right groin, 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 Femoral nerve was attempted to be repaired but not successful. Hamstrings were repositioned to allow for functional use of leg. Urinary frequency Surgical History History of bilateral cataract extraction History of colonoscopy History of hemorrhoidectomy History of orthopedic surgery Patella repair History of right inguinal hernia repair Hx of appendectomy Hx of lithotripsy S/P T&A (status post tonsillectomy and adenoidectomy) Family History Mother Osteoarthritis CHF (congestive heart failure) Brother Hypertension Atrial fibrillation Kidney stones Father Tobacco use Valvular heart disease Coronary heart disease Denies family history of Colon cancer Ovarian cancer Prostate cancer Clotting disorder Myocardial infarction Breast cancer Colorectal cancer Social History (Updated 12/05/21 @ 11:13 by Quincy Brennan) Smoking Status: Never smoker Second Hand Exposure: No; Hx Alcohol Use: No Hx Substance Use: No Preferred Language: Chinese Communication Ability: Effective Visual Impairment: Limited Hearing Ability: Normal Alley Worker Required: No Beliefs That Will Affect Care: None marital status: Current Living Situation: Spouse Current Living Situation Comment: lives near [place] current occupational status: retired 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[employer], 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, 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 How many Children do You have: 4 How many Children do You have Comment: 3 step-children, 1 biological child (has been 2x) Feels Safe at Home: Yes Dental Care, Regularly: Yes Physical Activity Frequency: Does not Exercise Seatbelt Use: sometimes Assistive Devices: Glasses Review of Systems Review of Systems: gen - no fevers or chills eyes - recent laser surgery about 10 days ago to L eye HENT - no dysphagia CV - no chest pain pulm - no cough or dyspnea GI - mild right-sided abdominal pain, severe right flank pain; mild nausea but no emesis; no BRBPR - hematuria x 1 after lithotripsy last week; no dysuria; no foul smelling urine; right groin pain musculo - no joint pains today or joint swelling from RA endo - denies DM skin - no rash neuro - chronic proximal right thigh weakness and hip flexion issues Physical Exam Physical Exam: gen - comfortable, NAD, pleasant eyes - lens implants b/l HENT - TMs not seen well due to tortuous canals; nose clear; mouth with MMM neck - no JVD, no masses heart - RRR, s1 s2, no murmur lungs - CTA b/l back - flank tenderness on RIGHT, none on left abd - soft, mildly tender RUQ/RLQ, BS+, NO HSM ext - no edema, pulses 2+ b/l skin - no rash psych - a/o x 3 neuro - right hip flexion weakness (chronic); distal strength b/l legs 5/5; strength b/l arms 5/5; DTRs upper exts 2+ lymph - no cervical lymph nodes b/l Results & Data Results & Data ([facility]) Vital Signs (Past 12 Hours) Vital Signs Pulse Pulse Resp BP BP Pulse Ox O2 Del Method 12/05/21 10:11 72 18 167/80 H 95 Room Air 12/05/21 09:33 78 20 157/83 H 97 Room Air 12/05/21 08:32 74 20 162/84 H 96 Room Air 12/05/21 08:28 72 20 159/86 H 95 Room Air 12/05/21 07:55 72 20 190/96 H 98 Room Air Laboratory Results Laboratory Results - last 24 hr 12/05/21 12/05/21 12/05/21 08:07 08:07 11:05 WBC 9.66 RBC 4.40 L Hgb 13.9 L Hct 41.2 MCV 93.6 MCH 31.6 MCHC 33.7 RDW Std Deviation 45.1 RDW Coeff of Matthew 13.2 Plt Count 215 MPV 10.0 Immature Gran % (Auto) 0.2 Neut % (Auto) 78.1 Lymph % (Auto) 9.5 [place] % (Auto) 10.7 Eos % (Auto) 0.8 Baso % (Auto) 0.7 Neut # (Auto) 7.54 H Lymph # (Auto) 0.92 L [place] # (Auto) 1.03 H Eos # (Auto) 0.08 Baso # (Auto) 0.07 Immature Gran # (Auto) 0.02 Sodium 136 Potassium 4.1 Chloride 104 Carbon Dioxide 27 Anion Gap 5 BUN 18 Creatinine 1.00 Est Cr Clr Drug Dosing 75.9 Est GFR ( Amer) 85.0 Est GFR (Non-Af Amer) 73.3 BUN/Creatinine Ratio 18.0 Glucose 124 H Calcium 8.9 Total Bilirubin 1.0 Direct Bilirubin 0.1 AST 13 ALT 11 Alkaline Phosphatase 87 Total Protein 7.4 Albumin 4.1 Lipase 13 SARS-CoV-2, RNA, NAAT Pending Diagnostic Findings Abdomen/Pelvis CT 12/05/21 08:[address] WITHOUT CONTRAST CT DOSE: 605.18 mGy.cm HISTORY: right flank pain, recent lithotripsy TECHNIQUE: Multiaxial CT images of the abdomen and pelvis were performed without contrast. A dose lowering technique was utilized adhering to the principles of ALARA. COMPARISON STUDY: None. FINDINGS: There are 2 adjacent stones within the mid right ureter measuring 4 mm and 2 mm best seen on images 260 and 254, respectively. This results in mild right hydronephrosis and right perinephric edema. Multiple additional bilateral renal calculi measuring up to 5 mm within the lower pole the right kidney. No left-sided hydronephrosis. However, there is an 8 x 5 mm nonobstructing stone within the proximal left ureter on image 205. Mild bladder wall thickening. This is likely due to chronic outlet obstruction from the enlarged prostate gland. Mild dependent changes seen at the lung bases. No pneumoperitoneum. No pneumatosis. Moderate to severe degenerative disease within the lumbar spine. The unenhanced liver, gallbladder, pancreas, spleen and adrenal glands are unremarkable. No retroperitoneal lymphadenopathy. Normal caliber abdominal aorta. No pelvic lymphadenopathy. Suboptimal evaluation for bowel pathology due to the lack of intravenous and oral contrast. However, there is no definite bowel wall thickening or obstruction. The appendix is surgically absent. Colonic diverticulosis. No evidence for acute diverticulitis. IMPRESSION: 1. There are 2 adjacent stones within the mid right ureter measuring up to 4 mm resulting in mild right hydronephrosis. 2. There is an 8 x 5 mm nonobstructing stone within the proximal left ureter. 3. Bilateral nephrolithiasis. 4. Additional findings as described above. ACT 112: Negative or not required by law. Electronically signed by: Valentin Perez M.D. 12/05/2021 9:01 AM Code Status & VTE Plan Code Status full code PG Care Time/CCT Total # of Minutes Spent Total Time Spent with Patient: Total time spent is greater than 50% in coordination of care (as documented) at patient's floor/unit and/or counseling patient: Coding Level of Care Code 13653 Initial Inpt Care Lvl 2 Diagnoses Urinary tract obstruction by kidney stone N20.0; N13.8 BPH (benign prostatic hyperplasia) N40.0 Rheumatoid arthritis M06.9 GERD (gastroesophageal reflux disease) K21.9 Nephrolithiasis N20.0 Hyperlipidemia E78.5 Hypertension I10 DVT prophylaxis Z29.9
[2021-12-05 11:37] LABS: Appearance Urine Clear (Clear); Bacteria Urine Automated Negative (Negative); Bilirubin Urine Negative (Negative); Blood Urine 1+ (Negative); Color Urine Yellow; Epithelial Cell Urine Auto 0-5 /lpf (0-5); Glucose Urine UA Negative (Negative); Ketones Urine Negative (Negative); Leukocyte Esterase Urine Negative (Negative); Nitrite Urine Negative (Negative); Protein Urine Negative (Negative); Specific Gravity Urine 1.021 (1.000-1.030); Urobilinogen Urine Negative (Negative)
[2021-12-05] MEDS ORDERED: NON-FORMULARY MEDICATION (Diphenhydramine-Acetaminophen [Tylenol Pm Extra Strength] 25-500 PO PRN (14:51)
[2021-12-05] MEDS ORDERED: HYDROmorphone INJ 0.5 MG/0.5 ML SYR IV PRN (14:51)
[2021-12-05] MEDS ORDERED: ONDANSETRON INJ 2 MG/ML 2 ML VIAL IV PRN (14:51)
[2021-12-05] MEDS ORDERED: PANTOprazole 40 MG TAB PO STA (15:12)
[2021-12-05] MEDS: SODIUM CHLORIDE 0.9% 1000ML 1,000 ML IV SCH ×2 (15:17→23:26)
[2021-12-05] MEDS ORDERED: diphenhydrAMINE Capsule 25 MG CAP PO PRN (15:26)
[2021-12-05] MEDS ORDERED: ACETAMINOPHEN 500 MG TAB PO PRN (15:26)
[2021-12-05] MEDS: TAMSULOSIN HCL 0.4 MG CAP PO SCH (15:46)
[2021-12-05] MEDS: amLODIPine BESYLATE 5 MG TAB PO SCH (15:46)
--- NOTE | 2021-12-05 18:42 | Urology Consultation ---
Date of Consultation December 05, 2021 Assessment & Plan (1) Nephrolithiasis: Plan Nephrolithiasis Based on CT it appears that he has bilateral ureteral stones with 2 small fragments (at least) in the right ureter and a proximal left ureteral calculus He is completely asymptomatic on the left, he has modest pain on the right, and he has a normal creatinine and white blood cell count He passed numerous small fragments over the weekend We will plan to allow observation overnight KUB and repeat creatinine in the morning N.p.o. after midnight Pending status in the morning we can determine if he requires intervention History of Present Illness Attending Physician: Quincy Brennan History of Present Illness 76-year-old gentleman who underwent right ESWL on Saturday and appears to have fragmented the stone relatively well He was passing small pieces throughout the weekend, today he started to experience severe right flank pain He could not tolerate the pain and presented to the emergency room CT performed CT does reveal 2 fragments in the mid/distal ureter Mild hydronephrosis He also has an incidentally discovered left proximal ureteral calculus Interestingly he has no elevated white count and he has a normal creatinine He has 0 pain on the left His pain on the right is currently controlled Allergies Allergy/AdvReac Type Severity Reaction Status Date / Time sulfur [From Sulfur-8] Allergy Intermediate Rash Verified 12/05/21 14:56 Home Medications Medication Instructions Recorded Confirmed Type adalimumab 40 mg/0.8 mL 40 mg subcut Q14D 04/25/18 12/05/21 History subcutaneous pen kit (Humira Pen) diphenhydramine 25 1 tab PO Q6H PRN Sleep 12/29/18 12/05/21 History mg-acetaminophen 500 mg tablet (Tylenol PM Extra Strength) ibuprofen 800 mg tablet 800 mg PO TID PRN Pain 10/04/21 12/05/21 History atorvastatin 40 mg tablet (Lipitor) 40 mg PO QPM #90 tabs 10/24/21 12/05/21 Rx irbesartan 75 mg tablet (Avapro) 75 mg PO QAM 11/22/21 12/05/21 History omeprazole 40 mg capsule,delayed 40 mg PO QAM 11/22/21 12/05/21 History release tadalafil 5 mg tablet 5 mg PO QDL 11/22/21 12/05/21 History tamsulosin 0.4 mg capsule (Flomax) 0.4 mg PO QDL 11/22/21 12/05/21 History hydrocodone 5 mg-acetaminophen 325 1 tab PO Q6H PRN pain #15 tabs 12/01/21 12/05/21 Rx mg tablet Patient History Medical History Bilateral sacroiliitis Chronic renal insufficiency GERD (gastroesophageal reflux disease) Hyperlipidemia Nephrolithiasis numerous - calcium based Osteoarthritis Rheumatoid arthritis Schwannoma right groin, 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 Femoral nerve was attempted to be repaired but not successful. Hamstrings were repositioned to allow for functional use of leg. Urinary frequency Surgical History History of bilateral cataract extraction History of colonoscopy History of hemorrhoidectomy History of orthopedic surgery Patella repair History of right inguinal hernia repair Hx of appendectomy Hx of lithotripsy S/P T&A (status post tonsillectomy and adenoidectomy) Family History Mother Osteoarthritis CHF (congestive heart failure) Brother Hypertension Atrial fibrillation Kidney stones Father Tobacco use Valvular heart disease Coronary heart disease Denies family history of Colon cancer Ovarian cancer Prostate cancer Clotting disorder Myocardial infarction Breast cancer Colorectal cancer Social History Smoking Status: Never smoker Second Hand Exposure: No; Hx Alcohol Use: No Hx Substance Use: No Preferred Language: Indonesian Communication Ability: Effective Visual Impairment: Limited Hearing Ability: Normal Studio Potter Required: No Beliefs That Will Affect Care: None marital status: Current Living Situation: Spouse Current Living Situation Comment: lives near [place] current occupational status: retired 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[employer], [employer], etc How many Children do You have: 4 How many Children do You have Comment: 3 step-children, 1 biological child (has been 2x) Feels Safe at Home: Yes Dental Care, Regularly: Yes Physical Activity Frequency: Does not Exercise Seatbelt Use: sometimes Assistive Devices: None Review of Systems Constitutional: no fever, no chills and no fatigue Eyes: no worsening vision Ear, Nose, Mouth, Throat: no facial pain and no pain with swallowing Respiratory: no cough and no dyspnea Cardiovascular: no chest pain and no palpitations Gastrointestinal: + nausea; no abdominal pain and no vomiting Genitourinary: + problem reported Musculoskeletal: no back pain Integumentary: no rash and no urticaria Neurologic: no gait abnormality and no unsteadiness Psychiatric: no behavioral changes and no depression Endocrine: no fatigue Physical Exam Constitutional: well developed and well nourished Respiratory: no respiratory distress Cardiovascular: Extremities: no pedal edema Gastrointestinal (Abdomen): Inspection/Auscultation: abdomen normal to inspection Results & Data ([facility]) Vital Signs (Past 12 Hours) Vital Signs Temp Pulse Pulse Resp BP BP Pulse Ox 12/05/21 17:34 36.9 C 76 16 161/81 H 95 12/05/21 15:50 71 17 166/88 H 96 12/05/21 15:43 71 17 168/93 H 95 12/05/21 15:18 72 18 159/80 H 95 12/05/21 14:50 12/05/21 14:31 37.6 C H 12/05/21 14:25 70 18 170/85 H 100 12/05/21 13:19 68 18 173/90 H 97 12/05/21 12:30 68 18 165/87 H 98 12/05/21 11:51 65 18 154/93 H 95 12/05/21 11:06 73 18 160/91 H 100 12/05/21 10:11 72 18 167/80 H 95 12/05/21 09:33 78 20 157/83 H 97 12/05/21 08:32 74 20 162/84 H 96 12/05/21 08:28 72 20 159/86 H 95 12/05/21 07:55 72 20 190/96 H 98 O2 Del Method 12/05/21 17:34 Room Air 12/05/21 15:50 Room Air 12/05/21 15:43 Room Air 12/05/21 15:18 Room Air 12/05/21 14:50 Room Air 12/05/21 14:31 12/05/21 14:25 Room Air 12/05/21 13:19 Room Air 12/05/21 12:30 Room Air 12/05/21 11:51 Room Air 12/05/21 11:06 Room Air 08/02/22 10:11 Room Air 12/05/21 09:33 Room Air 12/05/21 08:32 Room Air 12/05/21 08:28 Room Air 12/05/21 07:55 Room Air PG Care Time/CCT Total # of Minutes Spent Total Time Spent with Patient: Total time spent is greater than 50% in coordination of care (as documented) at patient's floor/unit and/or counseling patient: Coding Level of Care Code 31871 Inpt Consult Level 3 Diagnoses Nephrolithiasis N20.0
[2021-12-05] MEDS: cefTRIAXone SODIUM 2,000 MG in DEXTROSE 5% 50 ML IV SCH (18:46)
[2021-12-05] MEDS ORDERED: ATORVASTATIN 40 MG TAB PO SCH (21:00)
[2021-12-06] MEDS: SODIUM CHLORIDE 0.9% 1000ML 1,000 ML IV SCH (05:52)
--- NOTE | 2021-12-06 08:12 | Urology Progress Note ---
Date of Service December 06, 2021 Assessment & Plan (1) Nephrolithiasis: Plan: Passing right ureteral calculi as well as a proximal left ureteral calculus Labs pending this morning KUB pending this morning If no substantial movement of his stones, he may require intervention todaywe will review the results before making decisions Remain n.p.o. for now Admission and Anticipated Discharge Date Admission Date: December 05, 2021 Subjective No pain overnight No stone passage Pending labs and KUB this morning Physical Exam Constitutional: well developed and well nourished Respiratory: no respiratory distress Cardiovascular: Extremities: no pedal edema Gastrointestinal (Abdomen): Inspection/Auscultation: abdomen normal to ins pection PG Care Time/CCT Total # of Minutes Spent Total Time Spent with Patient: Total time spent is greater than 50% in coordination of care (as documented) at patient's floor/unit and/or counseling patient: Coding Level of Care Code 70878 Subseq Hosp Care Lvl 2 Diagnoses Nephrolithiasis N20.0
[2021-12-06] MEDS: amLODIPine BESYLATE 5 MG TAB PO SCH (08:55)
[2021-12-06] MEDS: cefTRIAXone SODIUM 2,000 MG in DEXTROSE 5% 50 ML IV SCH (08:56)
[2021-12-06] MEDS ORDERED: PANTOprazole 40 MG TAB PO SCH (09:00)
[2021-12-06 09:11] LABS: Hemoglobin 13.4 g/dl (14.0-18.0); Mean Corpuscular Hemoglobin 32.2 pg (25.0-34.0); Mean Corpuscular Hgb Conc 34.4 g/dL (32.0-36.0); Mean Corpuscular Volume 93.8 fL (80.0-100.0); Mean Platelet Volume 9.6 fL (9.4-12.4); Platelet Count 207 K/uL (130-400); RDW Coefficient of Variation 13.4 % (11.5-14.5); RDW Standard Deviation 45.9 fL (36.4-46.3); Red Blood Count 4.16 M/uL (4.63-6.08); White Blood Count 7.35 K/ul (4.8-10.8)
[2021-12-06 09:42] LABS: BUN Creatinine Ratio 18.4 (10-20); Calcium 8.7 mg/dl (8.5-10.1); Creatinine Clr Calc Pharmacy 87.2 ml/min; Est GFR (African American) 97.8 ml/min; Est GFR (Non-African American) 84.4 ml/min; Potassium 4.1 mmol/L (3.5-5.1)
--- NOTE | 2021-12-06 10:16 | XRay Report ---
KUB HISTORY: Kidney stones COMPARISON: Abdomen and pelvis CT 12/05/2021. FINDINGS: The bowel gas pattern is unremarkable. There are no dilated loops of small bowel to suggest an obstruction. Stable 8 mm stone within the proximal left ureter. Stable bilateral renal stones wh ich are partially obscured by overlying bowel gas. The patient's mid right ureteral stones are not we ll visualized likely obscured by overlying bowel gas. No pneumoperitoneum or pneumatosis. IMPRESSION: 1. The patient's mid right ureteral stones are not well visualized and likely obscured by overlying b owel gas. 2. No change in the 8 mm proximal left ureteral stone. 3. Stable bilateral nephrolithiasis. ACT 112: Negative or not required by law. Electronically signed by: Valentin Perez M.D. 12/06/2021 10:14 AM
--- NOTE | 2021-12-06 11:34 | Urology Progress Note ---
Date of Service December 06, 2021 Assessment & Plan (1) Nephrolithiasis: Plan: We reviewed his nephrolithiasis and his recent imaging. The stones are no longer clearly visible in the right ureter on x-ray, and he is not having any persistent pain. He is still making urine and his creatinine has improved. Although I cannot conclusively say that the stones have migrated down into the bladder, there is a good chance that this is happened. We also discussed there is a chance the stones are in place and have simply shifted to a point where they are nonobstructing. We discussed options for proceeding including cystoscopy and bilateral ureteral stent placement. This would be the most conservative approach and would ensure that both kidneys are draining optimally. The drawback would be discomfort from bilateral stents and that the procedure may not be necessary. We also reviewed the alternative of monitoring/expectant management. The stones that were seen are small enough that they are likely to pass without any trouble on the right side. He will need future intervention on the left. We discussed that the risk of this approach would be that if the stones are still in place, he may need to return to the emergency department if you have any pain, or if he stops making urine. He expressed understanding of both of these options as well as risks associated with each, and would prefer not to undergo surgical intervention at this time. He would like to continue to monitor and follow-up as an outpatient. Admission and Anticipated Discharge Date Admission Date: December 05, 2021 Subjective Checking in later this morning, patient reports that he is feeling well with out any pain on either side. He has not clearly collected any of the stones. Creatinine has improved since last night KUB demonstrated no clear stones within the right ureter although was limited by bowel gas. Physical Exam Physical Exam: Well-appearing, resting comfortably in bed, NAD Results & Data ([facility]) Vital Signs (Past 12 Hours) Vital Signs Temp Pulse Resp BP Pulse Ox 12/06/21 08:53 36.7 C 67 16 136/73 96 PG Care Time/CCT Total # of Minutes Spent Total Time Spent with Patient: Total time spent is greater than 50% in coordination of care (as documented) at patient's floor/unit and/or counseling patient: Coding Level of Care Code None Diagnoses Nephrolithiasis N20.0
[2021-12-06] MEDS: TAMSULOSIN HCL 0.4 MG CAP PO SCH (12:23)
--- NOTE | 2021-12-06 14:19 | Discharge Summary ---
Date of Service date of admission - December 05, 2021 date of discharge - December 06, 2021 Admission HPI Per Admitting Provider 76yo male with h/o recurrent calcium-based kidney stones, HTN, and rheumatoid arthritis presents with the acute onset of right flank pain beginning this am about 0300. The pain woke him from sleep and was very sharp/severe. He could not get comfortable all morning. He tried taking norco that he already had at home and this did not provide any relief. He drank fluids and took a walk and the pain persisted. Some of the pain began to radiate around to the front of the right side of the abdomen and into the right groin/genitalia region. Some nausea but no vomiting. Denies any fevers/chills. Of note - the patient just had lithotripsy on 12/01/21 for a right-sided 8mm kidney stone with Dr Ray, [facility]. Following the procedure he had 1 episode of gross hematuria which promptly resolved. Since the lithotripsy he has passed dust from the kidney stone intermittently in his urine. No hematuria since. No dysuria. On CT abd/pelvis in the ER this am there are 2 stone fragments in the right ureter - 4mm, and 2mm. There is also a left-sided 8mm stone in the proximal left ureter without any hydronephrosis. By the time of my assessment he was much more comfortable after receiving multiple doses of IV dilaudid and a liter of NS. Principal Diagnosis Right sided ureteral kidney stones Discharge Exam gen - NAD, comfortable mouth - MMM neck - no JVD heart - RRR, s1, s2, no murmur lungs - CTA b/l abd - soft, no flank tenderness b/l, ND, BS+ ext - no edema, pulses 2+ b/l psych - a/o x 3 Discharge Data Allergies Allergy/AdvReac Type Severity Reaction Status Date / Time sulfur [From Sulfur-8] Allergy Intermediate Rash Verified 12/05/21 14:56 Consultations [facility] Ordered Studies Abdomen/Pelvis CT 12/05/21 08:[address] WITHOUT CONTRAST CT DOSE: 605.18 mGy.cm HISTORY: right flank pain, recent lithotripsy TECHNIQUE: Multiaxial CT images of the abdomen and pelvis were performed without contrast. A dose lowering technique was utilized adhering to the principles of ALARA. COMPARISON STUDY: None. FINDINGS: There are 2 adjacent stones within the mid right ureter measuring 4 mm and 2 mm best seen on images 260 and 254, respectively. This results in mild right hydronephrosis and right perinephric edema. Multiple additional bilateral renal calculi measuring up to 5 mm within the lower pole the right kidney. No left-sided hydronephrosis. However, there is an 8 x 5 mm nonobstructing stone within the proximal left ureter on image 205. Mild bladder wall thickening. This is likely due to chronic outlet obstruction from the enlarged prostate gland. Mild dependent changes seen at the lung bases. No pneumoperitoneum. No pneumatosis. Moderate to severe degenerative disease within the lumbar spine. The unenhanced liver, gallbladder, pancreas, spleen and adrenal glands are unremarkable. No retroperitoneal lymphadenopathy. Normal caliber abdominal aorta. No pelvic lymphadenopathy. Suboptimal evaluation for bowel pathology due to the lack of intravenous and oral contrast. However, there is no definite bowel wall thickening or obstruction. The appendix is surgically absent. Colonic diverticulosis. No evidence for acute diverticulitis. IMPRESSION: 1. There are 2 adjacent stones within the mid right ureter measuring up to 4 mm resulting in mild right hydronephrosis. 2. There is an 8 x 5 mm nonobstructing stone within the proximal left ureter. 3. Bilateral nephrolithiasis. 4. Additional findings as described above. ACT 112: Negative or not required by law. Electronically signed by: Valentin Perez M.D. 12/05/2021 9:01 AM KUB X-Ray 12/06/21 07:00 KUB HISTORY: Kidney stones COMPARISON: Abdomen and pelvis CT 12/05/2021. FINDINGS: The bowel gas pattern is unremarkable. There are no dilated loops of small bowel to suggest an obstruction. Stable 8 mm stone within the proximal left ureter. Stable bilateral renal stones which are partially obscured by overlying bowel gas. The patient's mid right ureteral stones are not well visualized likely obscured by overlying bowel gas. No pneumoperitoneum or pneumatosis. IMPRESSION: 1. The patient's mid right ureteral stones are not well visualized and likely obscured by overlying bowel gas. 2. No change in the 8 mm proximal left ureteral stone. 3. Stable bilateral nephrolithiasis. ACT 112: Negative or not required by law. Electronically signed by: Valentin Perez M.D. 12/06/2021 10:14 AM Hospital Course (1) Urinary tract obstruction by kidney stone: Recent 8mm kidney stone on the right side, s/p Extracorporeal Shock Wave Lithotripsy by Dr Ray on 12/01/21 without incident. Unfortunately the stone fragments - now 4mm and 2mm based on this admission's CT - migrated into the right ureter causing mild hydronephrosis. He had severe pain at time of hospital presentation - improving then resolving with copious IV hydration, pain meds, etc. He was continued on flomax. He was seen by [facility] who recommended conservative treatment. He will d/c to home with pain meds and close f/u with [facility]. We discussed proper hydration, limitation of caffeine, etc. During the stay he did not have any evidence of UTI. (2) BPH (benign prostatic hyperplasia): continue flomax no LUTS while here (3) Rheumatoid arthritis: controlled at this time follows with rheumatology in [place] is on immune-based therapy chronically but not steroids or methotrexate (4) GERD (gastroesophageal reflux disease): continue PPI (5) Nephrolithiasis: bilateral stones calcium-based by history candidate for HCTZ use given his concomitant HTN? defer to urology that decision (6) Hyperlipidemia: cont statin therapy LFTs noted to be wnl while here (7) Hypertension: continue irbesartan continue flomax Total Time Total Time Spent Total Time Spent (In Minutes): 25 Discharge Plan Discharge Items Patient Disposition: Home - Self-Care Reason For Visit: RIGHT SIDED KIDNEY STONES Discharge Diagnosis: 1. recent lithotripsy of right-sided kidney stone 2. kidney stone fragments in right ureter with resulting right sided pain; pain now improved 3. 8mm left-sided kidney stone near the left kidney Activity: Resume your previous activity Driving/Machine Use: No driving if you are taking any hydrocodone pain killer medication Non-emergency contact: Primary Care Provider and Urologist Call non-emergency contact if: you have any medication questions, your symptoms worsen, your pain is not controlled, your pain is worsening and you have a fever Follow-up/Referrals: Yvan Alan MD [Physician] - 12/21/21 (f/u visit for kidney stones ) Luz Marina Ramírez PA-C [Physician Global Climate Change Analyst] - 12/14/21 11:00 am Piotr Peter DO [Primary Care Provider] - (see Dr Peter within 1 week ) Diet: Regular Addtl Attending Provider Instructions: Mr Albarado, You were hospitalized for right-sided flank and abdominal pain. A CT scan of your abdomen showed that the kidney stone on the right that underwent lithotripsy last week had broken into several "Fragments." These fragments had traveled into the right ureter causing pain and temporary blockage of urine flow. Your pain and other symptoms improved with IV fluids, pain medications, and time. [facility] saw you in consult and gave the option of either doing another surgical procedure right now or simply giving the fragments more time to pass. Recommendations - 1. Continue your tamsulosin medication as previous. 2. Continue to strain all of your urine to look for the stone fragments. 3. Drink plenty of fluids over the next 1-2 weeks. Do not drink caffeinated beverages in excess. Water & lemonade are best in the setting of kidney stones. 4. You can take the hydrocodone-acetaminophen pain killer medication every 6 hours as needed for pain. Note that this medication has tylenol in it so do not take extra [id number] tylenol if you use the hydrocodone. The hydrocodone may make you sleepy so do not drive a car or drink alcohol while on hydrocodone pain medication. This medication may also make you constipated. 5. If you pass a stone fragment please place in a cup and drop it off to the urology office for analysis. 6. Please talk to urology about starting a medication called "hydrochlorothiazide" with the hopes it helps prevent additional stones from being formed. This is a diuretic blood pressure pill. 7. Follow-up - see separate section. Return to [facility] if - * you have fevers over 100 degrees * you have large amounts of blood in your urine * you have worsening back, flank or abdominal pain * you have nausea and/or vomiting * you cannot pass your urine * any other concerns It was our pleasure to care for you at [facility]! Dr Brennan Pending Studies at Discharge: Yes Studies:: Urine culture Stand-Alone Forms: My [facility], Smoking Cessation Medications and DC Order Prescriptions: Continued adalimumab [Humira Pen] 40 mg/0.8 mL pen injector kit 40 mg SQ Q14D atorvastatin [Lipitor] 40 mg tablet 40 mg PO QPM Qty: 90 3RF omeprazole 40 mg capsule,delayed release(DR/EC) 40 mg PO QAM tamsulosin [Flomax] 0.4 mg capsule 0.4 mg PO QDL irbesartan [Avapro] 75 mg tablet 75 mg PO QAM Rx Instructions: just adding refills tadalafil 5 mg tablet 5 mg PO QDL Rx Instructions: take 1 hour prior to need hydrocodone-acetaminophen 5-325 mg tablet 1 tab PO Q6H PRN (Reason: pain) Qty: 15 0RF Changed diphenhydramine-acetaminophen [Tylenol PM Extra Strength] 25-500 mg tablet 1 tab PO HS PRN (Reason: Sleep) Qty: 1 0RF Discontinued ibuprofen 800 mg tablet 800 mg PO TID PRN (Reason: Pain) Discharge Orders: Discharge Order (Routine); Ordered 12/06/21 Ordered By: Quincy Gorman/Other Patient Handouts: Understanding Kidney Stones, Treating Kidney Stones: Medicines Admission Data Admit Date/Time: 12/05/21 10:30 Attending Provider: Quincy Brennan Admit Provider: Quincy Brennan Primary Care Provider: Piotr Peter Other Providers: Quincy Brennan ; Aaron Ray Other Interventions: Discharge Summary Assessment (RN) Last Done: 12/06/21 15:13 Coding Level of Care Code D/C DAY MANAGEMENT <30 MINS Diagnoses Urinary tract obstruction by kidney stone N20.0; N13.8 BPH (benign prostatic hyperplasia) N40.0 Rheumatoid arthritis M06.9 GERD (gastroesophageal reflux disease) K21.9 Nephrolithiasis N20.0 Hyperlipidemia E78.5 Hypertension I10
== END 2021-12-06 17:00 | disposition home or self-care (01) | DRG 694 ==
LOC: ED 07:49 → EDINP 10:30 → 3W 16:51
DX: N13.2 Hydronephrosis with renal and ureteral calculous obstruction; N40.0 Benign prostatic hyperplasia without lower urinary tract symptoms; I12.9 Hypertensive chronic kidney disease with stage 1 through stage 4 chronic kidney disease, or unspecified chronic kidney disease; Z79.899 Other long term (current) drug therapy; K21.9 Gastro-esophageal reflux disease without esophagitis; M06.9 Rheumatoid arthritis, unspecified; Z98.890 Other specified postprocedural states; N18.9 Chronic kidney disease, unspecified